=== PATIENT | female | born 1985 | race African-American/Black ===

== ENCOUNTER 2021-04-04 14:09 | Inpatient (IN) | payer MEDICAID ==
[~2021-04-04] VITALS: Ht 176.5 cm; Wt 80.3 kg
[2021-04-04] MEDS ORDERED: PREN1COM16 MT (14:22)
[2021-04-04] MEDS ORDERED: LIDOCAINE HCL 1% 20ML VIAL (Pyxis) INJ INFIL SCH (16:45)
[2021-04-04] MEDS ORDERED: LACTATED RINGERS 1,000 ML IV SCH (16:45)
[2021-04-04] MEDS ORDERED: DEXT 5%/LR + PITOCIN 20UNITS/L 1,000 ML IV SCH (16:45)
[2021-04-04] MEDS ORDERED: NALOXONE HCL 0.4 MG/ML 1ML VIAL IM PRN (16:45)
[2021-04-04] MEDS ORDERED: BUTORPHANOL TARTRATE 2 MG/ML VIAL IV PRN (16:45)
[2021-04-04 16:55] LABS: HEMATOCRIT. 34.6 % (36.0-48.0); HEMOGLOBIN. 11.4 g/dL (12.0-16.0); MEAN CORPUSCULAR HEMOGLOBIN 26.5 pg (28.0-32.0); MEAN CORPUSCULAR VOLUME 80.6 fL (81.0-99.0); MEAN PLATELET VOLUME 10.7 fl (7.4-10.4); PLATELET 171 x1000/uL (130-400); RED BLOOD CELL COUNT 4.29 mill/uL (4.2-5.4); RED CELL DISTRIBUTION WIDTH 14.8 % (11.6-14.6)
[2021-04-04 17:04] LABS: INR 0.9; PARTIAL THROMBOPLASTIN TIME 24.9 sec (23.4-31.0); PROTHROMBIN TIME 9.9 sec (9.6-11.0)
[2021-04-04 17:07] LABS: CLARITY URINE CLOUDY (CLEAR); COLOR URINE YELLOW (YELLOW); KETONES URINE 3+ (NEGATIVE); LEUKOCYTE ESTERASE URINE NEGATIVE (NEGATIVE); NITRITE URINE NEGATIVE (NEGATIVE); OCCULT BLOOD URINE TRACE (NEGATIVE); PH URINE 7.5 (4.5-8.0); PROTEIN URINE TRACE (NEGATIVE); SPECIFIC GRAVITY URINE 1.023 (1.005-1.030); UROBILINOGEN URINE 0.2 E.U./dL (0.2-1.0)
[2021-04-04 17:15] LABS: *AMPHETAMINES SCREEN URINE NEGATIVE (NEGATIVE); *COCAINE SCREEN URINE NEGATIVE (NEGATIVE); CANNABINOID URINE SCREEN NEGATIVE (NEGATIVE)
[2021-04-04 17:16] LABS: *BARBITURATES SCREEN URINE NEGATIVE (NEGATIVE); *BENZODIAZEPINES SCREEN URINE NEGATIVE (NEGATIVE); METHADONE URINE SCREEN NEGATIVE (NEGATIVE); OPIATES URINE SCREEN NEGATIVE (NEGATIVE); PHENCYCLIDINE URINE SCREEN NEGATIVE (NEGATIVE)
[2021-04-04 17:21] LABS: PLATELET ESTIMATE NORMAL
[2021-04-04 17:29] LABS: HEPATITIS B SURFACE ANTIGEN NEGATIVE
[2021-04-04] MEDS ORDERED: MINERAL OIL 30ML BOTTLE PO NR (21:28)
[2021-04-04] MEDS ORDERED: RHO(D) IMMUNE GLOBULIN 300 MCG/SYR IM PRN (22:45)
[2021-04-04] MEDS ORDERED: IBUPROFEN 800MG TABLET PO PRN (22:45)
[2021-04-04] MEDS ORDERED: IBUPROFEN 400MG TABLET PO PRN (22:45)
[2021-04-04] MEDS ORDERED: LANOLIN OINT 7GM TUBE TOP PRN (22:45)
[2021-04-05 00:15] VITALS: BP 96/57
[2021-04-05 00:45] VITALS: BP 96/68
[2021-04-05 06:29] LABS: EOSINOPHILS % 0.7 % (0.0-5.0); HEMOGLOBIN. 7.9 g/dL (12.0-16.0); LYMPHOCYTES % 8.6 % (20.0-50.0); MEAN CORPUSCULAR HEMOGLOBIN 26.4 pg (28.0-32.0); MEAN CORPUSCULAR VOLUME 79.9 fL (81.0-99.0); MEAN PLATELET VOLUME 10.3 fl (7.4-10.4); MONOCYTES % 8.1 % (2.0-8.0); NEUTROPHILS % 82.6 % (40.0-76.0); PLATELET 87 x1000/uL (130-400); RED BLOOD CELL COUNT 3.01 mill/uL (4.2-5.4); RED CELL DISTRIBUTION WIDTH 14.8 % (11.6-14.6)
[2021-04-05 07:32] VITALS: BP 94/61
[2021-04-05] MEDS ORDERED: PRENATAL VIT/FE FUMARATE/FA TABLET PO SCH (09:00)
[2021-04-05 15:37] VITALS: BP 91/53
[2021-04-05 20:05] LABS: MEAN CORPUSCULAR HEMOGLOBIN 26.9 pg (28.0-32.0); MEAN CORPUSCULAR VOLUME 80.4 fL (81.0-99.0); PLATELET 156 x1000/uL (130-400); RED BLOOD CELL COUNT 3.36 mill/uL (4.2-5.4); RED CELL DISTRIBUTION WIDTH 14.4 % (11.6-14.6)
[2021-04-05 22:00] VITALS: BP 95/63
[2021-04-06 05:40] VITALS: BP 98/65
[2021-04-06] MEDS ORDERED: IBUP-2028 PO (07:07)
[2021-04-06 08:00] VITALS: BP 92/52
== END 2021-04-06 10:30 | disposition home or self-care (01) | DRG 560 ==
LOC: OBSVTOIN 14:09 → 8 EST LDRP 14:09 → 8EST 04-05 00:15
PROVIDERS: ADMIT Obstetrics & Gynecology; ATTEND Obstetrics & Gynecology
PROC: 10E0XZZ Delivery of Products of Conception, External Approach (ICD-10-PCS; principal; 2021-04-04)
DX: O72.3 Postpartum coagulation defects (principal); D69.6 Thrombocytopenia, unspecified; Z37.0 Single live birth; Z3A.40 40 weeks gestation of pregnancy
CPT/HCPCS: 36415; 80305; 81003; 85025; 85027; 86592; 86703; 86762; 86850; 86900; 87340; 99281; J0595; J3490; J7120